=== PATIENT | female | born 1990 ===

== ENCOUNTER 2025-02-24 15:40 | Outpatient (AMB) | payer OTHER, SELFPAY ==
--- NOTE | 2025-02-24 15:45 | A.OFFVIS_ITS ---
Intake Visit Reasons: 6 month f/u Allergies No Known Allergies Allergy (Verified 02/20/25 10:57) Medication List - Last Reconciled 02/24/25 by Ashely Mg MD buspirone 15 mg PO BID cholecalciferol (vitamin D3) 50 mcg PO DAILY dextroamphetamine-amphetamine 30 mg ER (Adderall XR) 30 mg PO DAILY escitalopram oxalate 5 mg PO DAILY levocetirizine (Allergy Relief (levocetirizine)) 5 mg PO DAILY omeprazole 20 mg PO DAILY sumatriptan succinate 50 mg orally; topiramate 25 mg PO DAILY HPI Comments Details: 34 yo RH woman with diagnoses of idiopathic hypersomnia made with [facility] in 2016 (average sleep latency 3.36 min, REM latency 17 min), ADD, and probably migraine with vestibular symptoms. She is presenting with migraine. The patient reports that since she began allergy shots, her migraine frequency and severity have markedly decreased. Her migraine episodes, which once resulted in vomiting, have been largely absent over the past three months. She describes sinus-related pain near her ear that progresses to neck pain, often heralding a migraine. She manages these symptoms with Benadryl or nasal rinses, noting that early intervention prevents full-blown migraines from developing. Intermittent neck and shoulder pain are exacerbated by changes in barometric pressure. After discontinuing Topiramate, she has found Sumatriptan effective for acute episodes and has requested a prescription renewal. For her sleep disorder, she takes Adderall with satisfactory results. [facility] Medical History (Updated 02/24/25 @ 15:47 by Ashely Mg MD) ADHD Depression Osteochondritis GERD (gastroesophageal reflux disease) Idiopathic hypersomnia Review of Systems Narrative - Neurological: Reports migraines. Denies associated vomiting recently. - Musculoskeletal: Reports neck and shoulder pain exacerbated by weather changes. - Respiratory: Reports sinus-related symptoms associated with headaches. - Psychiatric: Denies problems with current ADHD medication regimen. - General: No issues reported post-initiation of allergy shots. Physical Exam Neuro Other: Mental Status: Alert and oriented to person, place, and time. Normal attention. Normal spontaneous speech, fluency, and comprehension. No obvious issues with mood and memory. Affect is appropriate. Cranial Nerves: CN II: Visual garvey full to confrontation, visual acuity intact. CN III, IV, : Pupils equal, round, reactive to light and accommodation. Extraocular movements are normal. CN V: Facial sensation is normal. CN VII: Facial movements symmetrical. CN VIII: Hearing intact to bedside conversation is normal. CN IX, X: Palate elevates symmetrically. CN XI: Shoulder shrug and head turn symmetrical. CN XII: Tongue midline without atrophy or fasciculations. Motor: Bulk and tone normal in all extremities. No significant muscle weakness in arms and legs. No drift. Extrapyramidal: Full facial expressions and blinking. No rigidity. Movements are appropriate with no tremor or abnormality. Speech: Normal; no dysarthria or tremor. 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
== END 2025-02-24 15:53 | disposition home or self-care (01) ==
PROVIDERS: PCP Nurse Practitioner Gerontology; Referring Provider Nurse Practitioner Gerontology; Visit Provider Psychiatry & Neurology Neurology
DX: G43.109 Migraine with aura, not intractable, without status migrainosus (principal); G47.11 Idiopathic hypersomnia with long sleep time
CPT/HCPCS: 99214